=== PATIENT | female | born 1980 | race American Indian/Alaskan Native ===

== ENCOUNTER 2016-12-04 00:16 | Emergency (ER) | payer SELFPAY ==
[2016-12-04 01:41] LABS: Basophils % (Auto) 0.8 % (0.0-1.8); Eosinophils % (Auto) 0.4 % (0.0-4.3); Hematocrit 34.8 % (30.3-42.9); Hemoglobin 11.4 gm/dl (10.1-14.3); Mean Corpuscular HGB Conc 33 % (30-34); Mean Corpuscular Hemoglobin 27 pg (28-32); Mean Corpuscular Volume 82 fl (79-97); Platelet Count 266 K/mm3 (140-440); Red Blood Count 4.23 M/mm3 (3.65-5.03); Red Cell Distribution Width 15.8 % (13.2-15.2)
[2016-12-04 02:03] VITALS: BP 146/93
[2016-12-04 02:05] LABS: Alanine Aminotransferase 19 units/L (7-56); Albumin 4.8 g/dL (3.9-5); Albumin/Globulin Ratio 1.3 %; Alkaline Phosphatase 79 units/L (35-129); Anion Gap 18 mmol/L; BUN/Creatinine Ratio 24.28; Blood Urea Nitrogen 17 mg/dL (7-17); Calcium 10.3 mg/dL (8.4-10.2); Carbon Dioxide 27 mmol/L (22-30); Chloride 96.9 mmol/L (98-107); Glucose 100 mg/dL (65-100); Lipase 19 units/L (13-60); Sodium 138 mmol/L (137-145); Total Protein 8.4 g/dL (6.3-8.2)
[2016-12-04 02:48] LABS: Bilirubin,Urine NEG (Negative); Blood,Urine NEG (Negative); Ketones,Urine NEG (Negative); Leukocyte Esterase,Urine SM (Negative); Nitrite,Urine NEG (Negative); Protein,Urine <15 mg/dL mg/dL (Negative); Urobilinogen,Urine < 2.0 mg/dL (<2.0)
[2016-12-04 02:57] LABS: Bacteria,Urine 2+ /HPF (Negative)
--- NOTE | 2016-12-04 09:26 | XRay Report ---
Chest 2 views: History: Shortness of breath. Findings: Normal cardiomediastinal silhouette. Trachea is midline. No consolidation, pneumothorax or pleural effusion. Impression: No acute cardiopulmonary findings.
--- NOTE | 2016-12-07 09:46 | ED Elopement Review ---
ED Pt Elopement review - Results review Lab results: Laboratory Tests 12/04/16 12/04/16 12/04/16 01:05 01:05 01:05 WBC 9.0 RBC 4.23 Hgb 11.4 Hct 34.8 MCV 82 MCH 27 L MCHC 33 RDW 15.8 H Plt Count 266 Lymph % (Auto) 28.3 [place] % (Auto) 7.6 H Eos % (Auto) 0.4 Baso % (Auto) 0.8 Lymph # 2.6 Anderson # 0.7 Eos # 0.0 Baso # 0.1 Seg Neutrophils % 62.9 Seg Neutrophils # 5.7 VBG pH Sodium 138 Potassium 4.0 Chloride 96.9 L Carbon Dioxide 27 Anion Gap 18 BUN 17 Creatinine 0.7 Estimated GFR > 60 BUN/Creatinine Ratio 24.28 Glucose 100 Lactic Acid Calcium 10.3 H Magnesium 1.80 Total Bilirubin 0.20 AST 18 ALT 19 Alkaline Phosphatase 79 Troponin T < 0.010 Total Protein 8.4 H Albumin 4.8 Albumin/Globulin Ratio 1.3 Lipase 19 HCG, Qual Negative Urine Color Urine Turbidity Urine pH Ur Specific [place] Urine Protein Urine Glucose (UA) Urine Ketones Urine Blood Urine Nitrite Urine Bilirubin Urine Urobilinogen Ur Leukocyte Esterase Urine WBC (Auto) Urine RBC (Auto) U Epithel Cells (Auto) Urine Bacteria (Auto) Hyaline Casts 12/04/16 12/04/16 12/04/16 01:05 Unknown Unknown WBC RBC Hgb Hct MCV MCH MCHC RDW Plt Count Lymph % (Auto) [place] % (Auto) Eos % (Auto) Baso % (Auto) Lymph # [place] # Eos # Baso # Seg Neutrophils % Seg Neutrophils # VBG pH 7.353 Sodium Potassium Chloride Carbon Dioxide Anion Gap BUN Creatinine Estimated GFR BUN/Creatinine Ratio Glucose Lactic Acid 1.00 Calcium Magnesium Total Bilirubin AST ALT Alkaline Phosphatase Troponin T Total Protein Albumin Albumin/Globulin Ratio Lipase HCG, Qual Urine Color Straw Urine Turbidity Clear Urine pH 7.0 Ur Specific [place] 1.010 Urine Protein <15 mg/dl Urine Glucose (UA) Neg Urine Ketones Neg Urine Blood Neg Urine Nitrite Neg Urine Bilirubin Neg Urine Urobilinogen < 2.0 Ur Leukocyte Esterase Sm Urine WBC (Auto) 1.0 Urine RBC (Auto) 1.0 U Epithel Cells (Auto) 1.0 Urine Bacteria (Auto) 2+ Hyaline Casts 1 - Call Back decision Pt Call Back Decision: Call pt to return to ED DAGOBERTO (abnormal EKG)
== END 2016-12-04 01:05 | disposition left against medical advice (07) ==
LOC: ED 00:16
DX: R07.89 Other chest pain (principal); R06.02 Shortness of breath; R53.1 Weakness; R11.2 Nausea with vomiting, unspecified; Z53.21 Procedure and treatment not carried out due to patient leaving prior to being seen by health care provider
CPT/HCPCS: 36415; 71020; 80053; 81001; 82140; 82805; 83690; 83735; 84484; 84703; 85025; 93005; 93010